=== PATIENT | female | born 1995 | race Hispanic/Latino ===

== ENCOUNTER 2025-02-09 02:49 | Inpatient (IN) | payer BC, OTHER, SELFPAY ==
[2025-02-09 03:09] LABS: Absolute Lymphocytes (CBC) 3.3 K/uL (0.7-4.9); Hematocrit 41.7 % (36.0-45.0); Hemoglobin 14.2 g/dL (12.0-15.0); MCH 30.7 pg (27.0-35.0); MCHC 34.1 g/dL (32.0-36.0); MCV 90.2 fL (80-100); MPV 8.0 fL (7.6-11.3); Nucleated RBC Absolute Count 0.0 (0-0); Nucleated Red Blood Cells % 0.0 % (0-0); RBC Red Blood Cell Count 4.63 M/uL (3.86-4.86); White Blood Count 9.10 thou/uL (4.3-10.9)
[2025-02-09 03:27] LABS: ALT/SGPT 33.0 U/L (13-56); AST/SGOT 17.0 U/L (15-37); Albumin 4.1 g/dL (3.4-5.0); Albumin/Globulin Ratio 1.1 (1.1-1.8); Alkaline Phosphatase 58.0 U/L (45-117); Anion Gap 11.6 mEq/L (5.0-15.0); BUN Blood Urea Nitrogen 19.0 mg/dL (7-18); Globulin 3.8 g/dL (2.3-3.5); Glucose Level 103.0 mg/dL (74-106); Potassium 3.6 mEq/L (3.5-5.1)
[2025-02-09] MEDS ORDERED: PIPERACIL/TAZO 3.375 GM VIAL IV ONE (05:13)
[2025-02-09] MEDS ORDERED: NA CHLORIDE 0.9% 100 ML ONE (05:13)
--- NOTE | 2025-02-09 05:14 | EDPHYS ---
Physician Documentation [facility] Name: Margaret Joshua Age: 29 yrs Sex: Female : 1995 Arrival Date: 02/09/2025 Time: 02:49 Bed 7 Private MD: ED Physician Luke Yanez HPI: 02/09 04:55 This 29 yrs old Female presents to ER via Ambulatory with complaints of ms3 Abdominal Pain. 04:55 29-year-old female with no past medical history presents to the emergency department ms3 for right upper quadrant pain. Patient states her pain is a 5/10 located right upper quadrant. Patient took Pepto-Bismol without improvement of her symptoms. Patient states the discomfort is pulsating. She endorses nausea and vomiting. 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 - Infectious Disease History:: Denies. - Social history:: Smoking status: Patient denies any tobacco usage or history of. ROS: 04:55 Constitutional: Negative for fever, and chills. Cardiovascular: Negative for chest ms3 pain, and palpitations. Respiratory: Negative for shortness of breath, cough, wheezing, and pleuritic chest pain, 04:55 MS/Extremity: Negative for injury and deformity, Skin: Negative for injury, rash, and discoloration, 04:55 Abdomen/GI: Positive for abdominal pain, nausea and vomiting, Exam: 04:55 Constitutional: This is a well developed, well nourished patient who is awake, alert, ms3 and in no acute distress. Cardiovascular: Regular rate and rhythm with a normal S1 and S2. No gallops, murmurs, or rubs. Normal PMI, no JVD. No pulse deficits. Respiratory: Lungs have equal breath sounds bilaterally, clear to auscultation and percussion. No rales, rhonchi or wheezes noted. No increased work of breathing, no retractions or nasal flaring. Vital Signs: 02:59 BP 126 / 75; Pulse 65; Resp 16; Temp 97.5; Pulse Ox 100% ; Weight 58.97 kg; Height 5 vc1 ft. 1 in. ; Pain 5/10; 04:00 BP 99 / 74; Pulse 55; Resp 14; Pulse Ox 98% on R/A; vc1 05:56 BP 97 / 53; Pulse 67; Resp 16; Pulse Ox 98% ; cp4 02:59 Body Mass Index 24.56 (58.97 kg, 154.94 cm) vc1 02:59 Pain Scale: Adult vc1 MDM: 02:53 Medical Screening Exam initiated ms3 04:55 Differential diagnosis: bowel obstruction, cholecystitis, Cholelithiasis, non-specific ms3 abd pain, pancreatitis. 05:13 Data reviewed: vital signs, nurses notes, lab test result(s), radiologic studies, CT ms3 scan, ultrasound, and as a result, I will admit patient. Consideration of Admission/Observation Patient was admitted/placed on observation. Management of patient was discussed with the following: Hospitalist: Pita Bell. Returned Goods Sorter: Dr Honorio Anguiano consult on patient.. I considered the following discharge prescriptions or medication management in the emergency department Medications were administered in the Emergency Department. See MAR. Counseling: I had a detailed discussion with the patient and/or guardian regarding the historical points, exam findings, and any diagnostic results supporting the discharge/admit diagnosis, lab results, radiology results, the need for further work-up and treatment in the hospital. ED course: Discussed ultrasound results and labs with patient and her . All questions were answered. Return precautions discussed discussed necessity for admission for cholecystitis. They understand and agree with plan. Patient given Zosyn in the emergency department.. 02/09 02:51 Order name: CBC with Diff; Complete Time: 04:10 ms3 02/09 02:51 Order name: CMP; Complete Time: 04:10 ms3 02/09 02:51 Order name: Test, Urine; Complete Time: 04:10 ms3 02/09 02:58 Order name: Lipase; Complete Time: 04:10 ms3 02/09 02:58 Order name: Test, Serum; Complete Time: 04:10 ms3 02/09 05:31 Order name: CBC with Automated Diff EDMS 02/09 05:31 Order name: CBC with Automated Diff EDMS 02/09 05:31 Order name: CBC with Automated Diff EDMS 02/09 05:31 Order name: CBC with Automated Diff EDMS 02/09 05:31 Order name: Comprehensive Metabolic Panel EDMS 02/09 05:31 Order name: Comprehensive Metabolic Panel EDMS 02/09 05:31 Order name: Comprehensive Metabolic Panel EDMS 02/09 05:31 Order name: Comprehensive Metabolic Panel EDMS 02/09 02:58 Order name: US Abdomen Limited ms3 02/09 04:10 Order name: CT Abd/Pelvis - IV Contrast Only ms3 02/09 05:33 Order name: Dr Antonio Carrasco EDMS 02/09 02:51 Order name: IV Saline Lock; Complete Time: 03:02 ms3 02/09 02:51 Order name: Labs collected and sent; Complete Time: 03:02 ms3 Administered Medications: 05:52 Drug: Piperacillin-Tazobactam IVPB 3.375 grams IVPB once over 60 mins; (mix in NS 100 cp4 mL) Route: IVPB; Infused Over: 60 mins; Site: left antecubital; 05:59 Follow up: IV Status: Completed infusion cp4 Disposition Summary: 02/09/25 05:13 Hospitalization Ordered Notes: Hospitalization Status: Inpatient Admission ms3 Provider: Feliberto Nguyen ms3 Location: Telemetry/MedSurg (Inpatient) ms3 Condition: Stable ms3 Problem: new ms3 Symptoms: are unchanged ms3 Bed/Room Type: Standard ms3 Room Assignment: 219(02/09/25 05:40) rv1 Diagnosis - Acute cholecystitis ms3 - Other acute pancreatitis without necrosis or infection ms3 Forms: - Medication Reconciliation Form ms3 - SBAR form ms3 - Leadership Thank You Letter ms3 Signatures: Dispatcher [employer] EDMS Luke Yanez, DO DO ms3 Mallika Fountain RN RN 1 Jayne Barney rv1 Kylah Acuna cp4 Corrections: (The following items were deleted from the chart) 05:40 05:13 ms3 rv1
--- NOTE | 2025-02-09 05:14 | ER ---
Nurse's Notes [facility] Name: Margaret Joshua Age: 29 yrs Sex: Female : 1995 Arrival Date: 02/09/2025 Time: 02:49 Bed 7 Private MD: Diagnosis: Acute cholecystitis;Other acute pancreatitis without necrosis or infection Presentation: 02/09 02:59 Chief complaint: Patient states: Started having right upper quadrant pain that started vc1 around 9 oclock, not getting any better. Coronavirus screen: Client denies travel out of the [place] in the last 14 days. At this time, the client does not indicate any symptoms associated with coronavirus-19. Ebola Screen: Patient negative for fever greater than or equal to 101.5 degrees Fahrenheit, and additional compatible Ebola Virus Disease symptoms Patient denies exposure to infectious person. Patient denies travel to an Ebola-affected area in the 21 days before illness onset. No symptoms or risks identified at this time. Initial Sepsis Screen: Does the patient meet any 2 criteria? No. Patient's initial sepsis screen is negative. Does the patient have a suspected source of infection? No. Patient's initial sepsis screen is negative. Risk Assessment: Do you want to hurt yourself or someone else? Patient reports no desire to harm self or others. Onset of symptoms was February 08, 2025 at 21:00. Care prior to arrival: Medication(s) given: tums. 02:59 Method Of Arrival: Ambulatory vc1 02:59 Acuity: YAZMIN 3 vc1 Triage Assessment: 03:03 General: Appears in no apparent distress. uncomfortable, slender, well groomed, well vc1 developed, well nourished, Behavior is calm, cooperative, appropriate for age. Pain: Complains of pain in right upper quadrant Pain does not radiate. Pain currently is 5 out of 10 on a pain scale. EENT: No deficits noted. No signs and/or symptoms were reported regarding the EENT system. Neuro: Level of Consciousness is awake, alert, obeys commands, Oriented to person, place, time, situation, Appropriate for age. Cardiovascular: Heart tones S1 S2 present Capillary refill < 3 seconds Patient's skin is warm and dry. Respiratory: Airway is patent Respiratory effort is even, unlabored, Respiratory pattern is regular, symmetrical, Breath sounds are clear bilaterally. GI: Abdomen is flat, non-distended, Reports upper abdominal pain, nausea. : No deficits noted. No signs and/or symptoms were reported regarding the genitourinary system. Derm: Skin is intact, is healthy with good turgor, Skin is dry, Skin is normal, Skin temperature is warm. Musculoskeletal: Circulation, motion, and sensation intact. Range of motion: intact in all extremities. 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 - Infectious Disease History:: Denies. - Social history:: Smoking status: Patient denies any tobacco usage or history of. Screenin:02 [facility] ED Fall Risk Assessment (Adult) History of falling in the last 3 months, vc1 including since admission No falls in past 3 months (0 pts) Confusion or Disorientation No (0 pts) Intoxicated or Sedated No (0 pts) Impaired Gait No (0 pts) Mobility Assist Device Used No (0 pt) Altered Elimination No (0 pt) Score/Fall Risk Level 0 - 2 = Low Risk Oriented to surroundings, Maintained a safe environment, Educated pt \T\ family on fall prevention, incl call for assistance when getting out of bed, Assessed \T\ reinforced patient's understanding of fall precautions, Hourly rounding (assess needs \T\ fall precautionary measures) done. Abuse screen: Denies threats or abuse. Nutritional screening: No deficits noted. Tuberculosis screening: No symptoms or risk factors identified. Vital Signs: 02:59 BP 126 / 75; Pulse 65; Resp 16; Temp 97.5; Pulse Ox 100% ; Weight 58.97 kg; Height 5 vc1 ft. 1 in. ; Pain 5/10; 04:00 BP 99 / 74; Pulse 55; Resp 14; Pulse Ox 98% on R/A; vc1 05:56 BP 97 / 53; Pulse 67; Resp 16; Pulse Ox 98% ; cp4 02:59 Body Mass Index 24.56 (58.97 kg, 154.94 cm) vc1 02:59 Pain Scale: Adult vc1 ED Course: 02:49 Patient arrived in ED. jj6 02:51 Luke Yanez DO is Attending Physician. ms3 03:02 Triage completed. vc1 03:02 Arm band placed on right wrist. vc1 03:03 Patient has correct armband on for positive identification. Bed in low position. Call vc1 light in reach. Provided Education on: Plan of care. Pulse ox on. NIBP on. 03:30 US Abdomen Limited In Process Unspecified. EDMS 05:03 CT Abd/Pelvis - IV Contrast Only In Process Unspecified. EDMS 05:12 Feliberto Nguyen is Hospitalizing Provider. ms3 06:49 No provider procedures requiring assistance completed. Patient admitted, IV remains in cp4 place. Administered Medications: 05:52 Drug: Piperacillin-Tazobactam IVPB 3.375 grams IVPB once over 60 mins; (mix in NS 100 cp4 mL) Route: IVPB; Infused Over: 60 mins; Site: left antecubital; 05:59 Follow up: IV Status: Completed infusion cp4 Medication: 03:03 VIS not applicable for this client. vc1 Outcome: 05:13 Decision to Hospitalize by Provider. ms3 06:44 Patient left the ED. rv1 06:49 Admitted to Med/surg accompanied by tech, via wheelchair, room 219, cp4 06:49 Condition: stable 06:49 Instructed on the need for admit, Signatures: Dispatcher [employer] EDPA uLke Yanez DO DO ms3 Louise Kevin jj6 Mallika Fountain RN RN vc1 Jayne Barney rv1 Kylah Acuna cp4
[2025-02-09] MEDS ORDERED: ONDANSETRON 4 MG/2 ML VIAL IV PRN (05:27)
[2025-02-09] MEDS ORDERED: MORPHINE 4 MG/ML SYR IV PRN (05:29)
--- NOTE | 2025-02-09 05:38 | RAD REPORT ---
PROCEDURE: US ABDOMEN LIMITED INDICATION: Abdominal pain. COMPARISON: None. TECHNIQUE: Grayscale, color and spectral Doppler ultrasound of the right upper quadrant was performed . FINDINGS: GALLBLADDER: Multiple shadowing gallstones and sludge in gallbladder. 1.4 cm stone appears lodged in gallbladder neck. Gallbladder wall is mildly thickened. No pericholecystic fluid. COMMON BILE DUCT: Limited visualized. OTHER: None. IMPRESSION: Cholelithiasis including an 1 1.4 cm stone in gallbladder neck. Mild gallbladder wall thickening. Fin dings are equivocal for acute cholecystitis. Follow-up with CT and/or MRCP can be considered. Electronically signed by: Tania Treviño MD 02/09/2025 04:35 AM CDT RP Due to temporary technical issues with the PACS/[place] reporting system, reports are being nacho d by the in-house radiologist without review as a courtesy to ensure prompt reporting the interpreting radiologist is fully responsible for the content of the report. Transcribed Date/Time: 02/09/2025 5:37 AM
--- NOTE | 2025-02-09 05:38 | P.HP ---
Certification for Inpatient Patient admitted to: Inpatient With expected LOS: >2 Midnights Patient will require the following post-hospital care: None Practitioner: I am a practitioner with admitting privileges, knowledge of patient current condition, hospital course, and medical plan of care. Services: Services provided to patient in accordance with Admission requirements found in Title 42 Section 412.3 of the Code of Federal Regulations Patient History Date of Service: 02/09/25 Reason for admission: Acute cholecystitis. History of Present Illness: Patient is a pleasant 29-year-old female with no past medical history, [facility] complaining of severe pain with associated nausea, and mild shortness of breath, but no vomiting. Patient states around 9 PM she started having right upper quadrant abdominal pain, and initially she thought it was GERD so she took some Tylenol and some Tums. States the pain got a little better but around 11 PM again the pain started, states she took some more medication and went to bed. States she got up at 2 AM with severe right upper quadrant abdominal pain associated with chills, and states at this time the pain was radiating to the right side of her back, states the pain was constant, and profound with a pain scale 10/10, which then prompted her to report to the ER. On admission assessment, patient denies of any shortness of breath at this time, denies of chest pain, no nausea or vomiting noted. According to report received from ER Dr. Yanez, he states he consulted Dr. Carrasco, who states patient should be N.p.o. for possible surgery in the morning, but also noted on the fact that his surgical schedule today is really booked but he will try and get the patient in for surgery if possible. - Past Medical/Surgical History -: Patient states she does not have any past medical history. -: Patient states she does not have any past surgical history - Social History Smoking Status: Never smoker Alcohol use: No CD- Drugs: No Caffeine use: No Place of Residence: Home Review of Systems 10-point ROS is otherwise unremarkable Gastrointestinal: Nausea, Abdominal Pain Physical Examination - Physical Exam General: Alert, In no apparent distress, Oriented x3 HEENT: Atraumatic, Normocephalic, PERRLA, Mucous membr. moist/pink Neck: Supple, 2+ carotid pulse no bruit, No LAD, Without JVD or thyroid abnormality Respiratory: Clear to auscultation bilaterally, Normal air movement Cardiovascular: No edema, Normal pulses, Regular rate/rhythm, Normal S1 S2, No gallops, No rubs, No murmurs Capillary refill: <2 Seconds Gastrointestinal: Normal bowel sounds, No ascites, No masses, Tenderness (Right upper quadrant.), Guarding Musculoskeletal: No clubbing, No swelling, No contractures, No erythema, No tenderness, No warmth Integumentary: No rashes, No breakdown, No significant lesion, No tenderness/swelling, No erythema, No warmth, No cyanosis Neurological: Normal gait, Normal speech, Normal strength at 5/5 x4 extr, Normal tone, Sensation intact, Cranial nerves 3-12 intact, Normal reflexes 2+, Normal affect Lymphatics: No axilla or inguinal lymphadenopathy - Studies Laboratory Data (last 24 hrs) 02/09/25 02/09/25 02/09/25 03:01 03:01 03:01 WBC 9.10 Hgb 14.2 Hct 41.7 Plt Count 224 Sodium 138 Potassium 3.6 BUN 19 H Creatinine 0.89 Glucose 103 Total Bilirubin 0.3 AST 17 ALT 33 Alkaline Phosphatase 58 Lipase 193 H Female Exam - Breasts Breasts: Normal configuration Assessment and Plan - Plan Patient is a pleasant 29-year-old female with no past medical history, admitted with acute cholecystitis. Dr. Carrasco consulted, patient n.p.o. at this time for possible surgery today. (1)Acute cholecystitis. -N.p.o. at this time. -Morphine 4 mg IV as needed every 4 hours. -Zosyn 3.375 g IV every 8 hours. -D51/2 NS at 100 mL/ hr. -Consult Dr. Carrasco. -Zofran 4 mg IV as needed every 6 hours. -Explained the entire treatment plan to the patient, solicit questions answered and voiced understanding. Discharge Plan: Long Term Plan to discharge in: 72 Hours - Advance Directives Does patient have a Living Will: No Does patient have a Durable POA for Healthcare: No - Code Status/Comfort Care Code Status Assessed: No Code Status: Full Code Critical Care: No Time Spent Managing Pts Care (In Minutes): 55
--- NOTE | 2025-02-09 06:32 | RAD REPORT ---
EXAM DESCRIPTION: Abdomen Pelvis W Contrast RadLex: CT ABDOMEN PELVIS WITH IV CONTRAST CLINICAL HISTORY: 29 years Female; ABD PAIN; IV ONLY Bed Name: 7 TECHNIQUE: CT of the abdomen and pelvis [with] intravenous contrast. All CT scans at this facility use dose modulation, iterative reconstruction, and/or weight based dosi ng when appropriate to reduce radiation dose to as low as reasonably achievable. COMPARISON: None. FINDINGS: Lower thorax: Lung bases are clear Abdomen: Stomach: Within normal limits Liver: No focal lesions. No intrahepatic ductal distention. Gallbladder: Distended gallbladder with gallstones and questionable mild wall thickening. Pancreas: Within normal limits Spleen: Within normal limits Right kidney: No hydronephrosis. No focal lesion. Left kidney: No hydronephrosis. No focal lesion. Adrenal glands: Within normal limits Vascular structures: Within normal limits Nodes: No lymphadenopathy by size criteria Pelvis: Small bowel: No significant distention. Appendix: Within normal limits Colon: No distention or acute pericolonic edema. Peritoneum: No free intraperitoneal fluid or air. Bones: No acute bone findings. Bladder: Unremarkable. Reproductive organs: No acute findings. Soft tissues: Small fat-containing umbilical hernia. IMPRESSION: Distended gallbladder with gallstones and questionable mild wall thickening. Findings could represent acute cholecystitis in the appropriate clinical setting. Please see same-day right upper quadrant ultrasound for additional findings. Electronically signed by: Jerome Sawyer MD 02/09/2025 05:51 AM CDT TYG Due to temporary technical issues with the PACS/Inter[employer]er reporting system, reports are being nacho d by the in-house radiologist without review as a courtesy to ensure prompt reporting the interpreting radiologist is fully responsible for the content of the report. Transcribed Date/Time: 02/09/2025 6:32 AM
--- NOTE | 2025-02-09 08:06 | P.PN ---
Date of Service: 02/09/25 Subjective: Physical Exam: GEN: Alert, oriented, NAD CV: Regular rate and rhythm, no edema Pulm:Nonlabored respirations on room air, clear bilaterally ABD: soft, RUQ tenderness, guarding Neuro: Normal speech, normal affect Problem List: Acute cholecystitis On admission, presents with worsening RUQ pain associated with nausea and SOB. CT abd/pelvis (02/08): Distended gallbladder with gallstones and questionable mild wall thickening. Small umbilical hernia. Abdominal u/s (02/08): Cholelithiasis including a 1.4 cm stone lodged in gallbladder neck. Mild gallbladder wall thickening Dr. Carrasco, general surgeon consulted NPO for possible lap joycelyn; Pending schedule availability IV Zosyn for now (02/08-) pain control, antiemetics continue IV hydration while NPO Lipase mildly elevated, LFTs okay repeat lipase resolved. LFTs normal VTE: SCD Code: Full Dispo: Home Pending possible surgery Time Spent Managing Pts Care (In Minutes): 55
[2025-02-09 09:52] VITALS: BMI 24.5
[2025-02-09] MEDS: PIPER TAZO 3.375 GM in NA CHLORIDE 0.9% 100 ML IV SCH (11:00)
[2025-02-09] MEDS: D5 0.45 NS 1,000 ML IV SCH (11:00)
[2025-02-09 12:20] LABS: ALT/SGPT 32 U/L (13-56); AST/SGOT 22 U/L (15-37); Albumin 3.5 g/dL (3.4-5.0); Albumin/Globulin Ratio 1.1 (1.1-1.8); Alkaline Phosphatase 51 U/L (45-117); Globulin 3.2 g/dL (2.3-3.5); Lipase 25 U/L (13-75)
[2025-02-09 12:24] LABS: Bilirubin Indirect, Calculated 0.3 mg/dL (0.2-0.8)
--- NOTE | 2025-02-09 13:17 | CON ---
Date of Consultation: 02/09/2025 Reason For Service: Acute cholecystitis, symptomatic cholelithiasis. History Of Present Illness: This is a case of a 29-year-old patient comes to us, coming with severe abdominal pain. She was at work. She ate some shrimp before that and then by 9 o'clock it was just getting out of control. She came to the ER, still painful. She says that she recalled prior episode s, but normally they go away on its own, but this time, it did not. She was admitted to the hospital with diagnoses of symptomatic cholelithiasis and acute cholecystitis and mild pancreatitis, gallston e pancreatitis, and the benefits, alternatives, and risks of surgery were discussed with the patient. She decided to stay and have surgery done, so a surgical consult was obtained. Review of Systems: Denies any dysuria, hematuria, hematochezia, melena. Denies any shortness of breath, any chest pain. Denies any recent traveling out of the country. Denies any family member sick at home. Review of systems 10 points otherwise unremarkable. Social History: She does not smoke. She does not drink alcohol. Past Medical History: None. Past Surgical History: None other than a dental work. Family History: Noncontributory. Physical Examination: Vital Signs: Reviewed with temperature 98.1, blood pressure 101/57, respiration 14, and pulse rate 5 3. General: The patient is awake, alert. HEENT: Pupils are equal and reactive. Anicteric. Neck: Supple. Chest: Clear. Heart: S1, S2. Abdomen: Epigastric right upper quadrant pain, Fajardo sign positive. No guarding or rebound. Rectal: Deferred. Breasts: Deferred. Pelvic: Deferred. Extremities: Good capillary refill. No tenderness. Laboratory Data: Blood work shows WBC count of 9, hemoglobin of 14.2, and platelets of 224 with bica rb 27, creatinine 0.89, total bilirubin of 0.3. Initially, the lipase was 193, came down to 25. Ser um negative. Assessment: A 29-year-old patient with acute cholecystitis, symptomatic cholelithiasis, pancreatitis . The benefits, alternatives, and risks of laparoscopic possible open cholecystectomy fully explaine d, which include, but not limited to infection, bleeding, damage to adjacent structures, anesthesia c omplication, choledocholithiasis, bile leak, pancreatitis, MT, and even . She also understands this may not relieve symptoms. She might need more than one surgical intervention. She understood. She signed a consent. She wants surgery done during this admission. JOSELITO/KAM Voice ID: [id number] Report ID: [id number]
[2025-02-09] MEDS ORDERED: ONDANSETRON 4 MG/2 ML VIAL ONE (13:45)
[2025-02-09] MEDS: Ringers Lactate 1,000 ML IV ONE (13:45)
[2025-02-09] MEDS ORDERED: ROCURONIUM 50 MG/5 ML VIAL IV ONE (13:46)
[2025-02-09] MEDS ORDERED: LIDOCAINE 2% MPF 5 ML VIAL ONE (13:46)
[2025-02-09] MEDS ORDERED: FENTANYL CITR 100 MCG/2 ML ONE (13:46)
[2025-02-09] MEDS ORDERED: MIDAZOLAM HCL 2 MG/2 ML INJ ONE (13:46)
[2025-02-09] MEDS: SUGAMMADEX SODIUM 200 MG/2 ML VIAL IV ONE (15:18)
[2025-02-09] MEDS: Mastisol Adhesive Liq ONE (15:26)
--- NOTE | 2025-02-09 15:31 | P.BOP ---
Preoperative diagnosis: acute cholecystitis, symptomatic cholelithiasis Postoperative diagnosis: same Primary procedure: Laparoscopic cholecystectomy Estimated blood loss: <10cc Specimen: gb Findings: inflammd gallbladder Anesthesia: General Complications: None Transferred to: Recovery Room Condition: Good
[2025-02-09] MEDS: HYDROMORPHONE HCL 1 MG/ML INJ ONE ×2 (15:40→15:50)
--- NOTE | 2025-02-09 16:07 | OP ---
Date of Procedure: 02/09/2025 Surgeon: Honorio Carrasco MD Preoperative Diagnosis: Acute cholecystitis, symptomatic cholelithiasis. Postoperative Diagnosis: Acute cholecystitis, symptomatic cholelithiasis. Procedure: Laparoscopic cholecystectomy. Estimated Blood Loss: Less than 10 cc. Specimen: Gallbladder. Finding: Inflamed gallbladder. Anesthesia: General plus local. Indications: This is a case of a 29-year-old patient who came to us with above diagnoses. Fully exp lained the benefits, alternatives, and risks of laparoscopic possible open cholecystectomy, which inc lude, but not limited to, infection, bleeding, damage to adjacent structures, anesthesia complication , choledocholithiasis, bile leak, pancreatitis, DC, and even . She also understands this may no t relieve any symptoms, she might need more than one surgical intervention. She understood, signed a consent. Description Of Procedure: The patient was brought to the operating room, placed in supine position. Anesthesia was induced without complication. Abdominal area was prepped and draped in the usual kizzy rile fashion. Marcaine 0.5% was injected for local anesthetic followed by sharp incision of the skin in the infraumbilical region. Incision was carried down to fascia, which was opened under direct vi prince. Peritoneum was encountered, opened under direct vision. Vicryl #1 placed inside the fascia. Devan trocar was carefully introduced. Pneumoperitoneum was obtained. I placed three more trocars, 5 mm each one of them, one in the epigastric area, two in the right upper quadrant using the same te chnique which consisted of local anesthetic, sharp incision of the skin, introduction of the trocars under direct vision. This allowed me to put a grasper in the fundus of the gallbladder, another gras per in the infundibulum, retracting the gallbladder in the inferolateral fashion exposing the triangl e of Calot, obtaining critical view. Cystic duct and cystic artery were clearly isolated, freed circ umferentially, and a connection between those and the gallbladder were clearly identified. I proceed ed to ligate those by using at least 3 clips proximal, 1 clip distal, ligation in the middle. Same w as done with the cystic artery. No bile leak. No bleeding. The gallbladder was removed from liver using Bovie cauterizer and removed from abdominal cavity using EndoCatch through the umbilical incisi on. The area was inspected once again. No bile leak. No bleeding. Clips were intact. At that mom ent, I proceeded to remove the trocars under direct vision. Deflated pneumoperitoneum. Closed the f ascia with #1 Vicryl, irrigated subcutaneous tissue, closed that with 3-0 chromic, and skin in a subc uticular fashion with 3-0 chromic and Steri-Strips on top. Sponge counts and instrument counts corre ct. Patient tolerated the procedure well. Patient was sent to recovery in stable condition. JOSELITO/KAM Voice ID: [id number] Report ID: [id number]
[2025-02-09] MEDS: FENTANYL CITR 100 MCG/2 ML ONE (16:10)
--- NOTE | 2025-02-09 16:12 | DS ---
Diagnoses: Acute cholecystitis, symptomatic cholelithiasis. Procedure: Laparoscopic cholecystectomy. Condition: Stable. Disposition: Home. Activity: As tolerated. No heavy lifting. Discharge Instructions: Follow up in my office in 1 week, call for appointment at [phone], that if she goes home today. If she goes home tomorrow, same condition, would follow up at the hospitalist's instructions. JOZEF Voice ID: [id number] Report ID: [id number]
[2025-02-09 17:13] VITALS: O2SAT 100
[2025-02-10] MEDS: HYDROCODONE/APAP 5/325 MG TAB PO PRN (06:00)
[2025-02-10 06:18] LABS: Absolute Lymphocytes (CBC) 2.0 K/uL (0.7-4.9); Hematocrit 34.6 % (36.0-45.0); Hemoglobin 11.8 g/dL (12.0-15.0); MCH 30.7 pg (27.0-35.0); MCHC 34.1 g/dL (32.0-36.0); MCV 89.9 fL (80-100); MPV 8.4 fL (7.6-11.3); Nucleated RBC Absolute Count 0.0 (0-0); Nucleated Red Blood Cells % 0.0 % (0-0); RBC Red Blood Cell Count 3.84 M/uL (3.86-4.86); White Blood Count 7.10 thou/uL (4.3-10.9)
[2025-02-10 06:32] LABS: ALT/SGPT 63.0 U/L (13-56); AST/SGOT 42.0 U/L (15-37); Albumin 3.0 g/dL (3.4-5.0); Albumin/Globulin Ratio 1.1 (1.1-1.8); Alkaline Phosphatase 45.0 U/L (45-117); Anion Gap 9.2 mEq/L (5.0-15.0); BUN Blood Urea Nitrogen 6.0 mg/dL (7-18); Globulin 2.8 g/dL (2.3-3.5); Glucose Level 115.0 mg/dL (74-106); Potassium 3.2 mEq/L (3.5-5.1)
[2025-02-10] MEDS: POTASSIUM CL SA 10 MEQ TAB PO ONE (08:21)
--- NOTE | 2025-02-10 11:37 | P.DS ---
Admission Date: 02/09/25 Discharge Date: 02/10/25 Reason for Admission: Acute cholecystitis. Consultations: General surgery - Dr. Carrasco Brief History of Present Illness: 29yo F, PMH: none Patient who presents to the ER tonight complaining of severe pain with associated nausea, and mild shortness of breath, but no vomiting. Patient states around 9 PM she started having right upper quadrant abdominal pain, and initially she thought it was GERD so she took some Tylenol and some Tums. States the pain got a little better but around 11 PM again the pain started, states she took some more medication and went to bed. States she got up at 2 AM with severe right upper quadrant abdominal pain associated with chills, and states at this time the pain was radiating to the right side of her back, states the pain was constant, and profound with a pain scale 10/10, which then prompted her to report to the ER. On admission assessment, patient denies of any shortness of breath at this time, denies of chest pain, no nausea or vomiting noted. According to report received from ER Dr. Yanez, he states he consulted Dr. Carrasco, who states patient should be N.p.o. for possible surgery in the morning, but also noted on the fact that his surgical schedule today is really booked but he will try and get the patient in for surgery if possible. Hospital Course: Problem List: Acute cholecystitis, s/p lap joycelyn (02/09) Physician discharge instructions: Patient presented with worsening RUQ pain associated with nausea and SOB secondary to acute cholecystitis. CT abdomen on admission showed distended gallbladder with gallstones and questionable mild wall thickening. Abdominal ultrasound was consistent with cholelithiasis including a 1.4 cm stone lodged in gallbladder neck and mild gallbladder wall thickening. She was noted to have a mildly elevated lipase on admission (193) otherwise the rest of her lab work on admission was unremarkable. Lipase quickly resolved prior to surgery with IV hydration. Patient was evaluated by Dr. Carrasco and underwent lap cholecystectomy on 02/09. She received IV zosyn while hospitalized and is to complete 1 week of oral a ugmentin on discharge. Patient was feeling better, abdominal pain improved, nausea resolved and was deemed stable for discharge. Patient has been tolerating diet and ambulating without issues on day of discharge. Continue soft diet for next 3-5 days. Can slowly ease back into regular diet over the next week. Follow up with Dr. Carrasco in his office in 1 week for further management. ALT/AST were noted to be very mildly elevated on day of discharge which is secondary to inflammation from surgery. Repeat blood work in ~1 week with PCP to ensure resolution of LFTs. No heavy lifting > 10 lbs for 4-6 weeks unless otherwise instructed by Dr. Carrasco at follow up appointment Do no submerge wound underwater. Okay to shower with running water. Keep area clean. Medications: Augmentin x1 week [place] 15 pills as needed for pain Follow up: PCP 3-[address] Carrasco ([phone]) in his office in 1 week Please call to schedule / confirm appointments Physical Exam: GEN: Alert, oriented, NAD CV: Regular rate and rhythm, no edema Pulm:Nonlabored respirations on room air, clear bilaterally ABD: soft, clean surgical dressing in place Neuro: Normal speech, normal affect Vital Signs/Physical Exam: Temp Pulse Resp BP Pulse Ox 97.5 F 68 18 105/51 L 98 02/10/25 08:00 02/10/25 08:00 02/10/25 08:00 02/10/25 08:00 02/10/25 08:00 Laboratory Data at Discharge: WBC 7.10 thou/uL (4.3-10.9) 02/10/25 04:51 Hgb 11.8 g/dL (12.0-15.0) L D 02/10/25 04:51 Hct 34.6 % (36.0-45.0) L 02/10/25 04:51 Plt Count 172 thou/uL (152-406) 02/10/25 04:51 Sodium 139 mEq/L (136-145) 02/10/25 04:51 Potassium 3.2 mEq/L (3.5-5.1) L 02/10/25 04:51 BUN 6 mg/dL (7-18) L 02/10/25 04:51 Creatinine 0.77 mg/dL (0.55-1.02) 02/10/25 04:51 Glucose 115 mg/dL (74-106) H 02/10/25 04:51 Total Bilirubin 0.6 mg/dL (0.2-1.0) 02/10/25 04:51 AST 42 U/L (15-37) H 02/10/25 04:51 ALT 63 U/L (13-56) H 02/10/25 04:51 Alkaline Phosphatase 45 U/L (45-117) 02/10/25 04:51 Lipase 25 U/L (13-75) 02/09/25 11:45 Home Medications: Amox/Clavulanate [Augmentin 875-125 Tab] 1 each PO BID 7 Days #14 tab 02/10/25 Hydrocodone 5/APAP 325 [[place] 5/325*] 1 tab PO Q8H PRN #15 tab 02/10/25 New Medications: Amox/Clavulanate [Augmentin 875-125 Tab] 1 each PO BID 7 Days #14 tab Hydrocodone 5/APAP 325 [[place] 5/325*] 1 tab PO Q8H PRN #15 tab PRN Reason: Pain Scale 5-7 (Moderate) Physician Discharge Instructions: Physician discharge instructions: Patient presented with worsening RUQ pain associated with nausea and SOB secondary to acute cholecystitis. CT abdomen on admission showed distended gallbladder with gallstones and questionable mild wall thickening. Abdominal ultrasound was consistent with cholelithiasis including a 1.4 cm stone lodged in gallbladder neck and mild gallbladder wall thickening. She was noted to have a mildly elevated lipase on admission (193) otherwise the rest of her lab work on admission was unremarkable. Lipase quickly resolved prior to surgery with IV hydration. Patient was evaluated by Dr. Carrasco and underwent lap cholecystectomy on 02/09. She received IV zosyn while hospitalized and is to complete 1 week of oral augmentin on discharge. Patient was feeling better, abdominal pain improved, nausea resolved and was deemed stable for discharge. Patient has been tolerating diet and ambulating without issues on day of discharge. Continue soft diet for next 3-5 days. Can slowly ease back into regular diet over the next week. Follow up with Dr. Carrasco in his office in 1 week for further management. ALT/AST were noted to be very mildly elevated on day of discharge which is secondary to inflammation from surgery. Repeat blood work in ~1 week with PCP to ensure resolution of LFTs. No heavy lifting > 10 lbs for 4-6 weeks unless otherwise instructed by Dr. Carrasco at follow up appointment Do no submerge wound underwater. Okay to shower with running water. Keep area clean. Medications: Augmentin x1 week [place] 15 pills as needed for pain Follow up: PCP 3-[address] Carrasco ([phone]) in his office in 1 week Please call to schedule / confirm appointments Followup: NONE,NONE [Primary Care Provider] - Time spent managing pt's care (in minutes): 45
[2025-02-10 12:28] VITALS: BP 100/53; TEMP 98.3
== END 2025-02-10 16:32 | disposition home or self-care (01) | DRG 417 ==
LOC: ER 02:49 → 2ND 05:25
PROVIDERS: ADMIT Hospitalist; ATTEND Hospitalist
PROC: 0FT44ZZ Resection of Gallbladder, Percutaneous Endoscopic Approach (ICD-10-PCS; principal; 2025-02-09 15:30)
DX: K80.00 Calculus of gallbladder with acute cholecystitis without obstruction (principal); K85.10 Biliary acute pancreatitis without necrosis or infection; Z28.310 Unvaccinated for COVID-19
CPT/HCPCS: 36415; 74177; 76705; 80053; 80076; 81025; 83690; 84703; 85025; 88304; 94010; 96374; 99285; J1171; J2003; J2250; J2405; J2543; J2704; J3010; J7120; J7799; Q9967